=== PATIENT | female | born 1940 | race Two or more races ===

== ENCOUNTER 2023-10-31 15:18 | Emergency (ER) | payer OTHER ==
[~2023-10-31] VITALS: Ht 152.4 cm; Wt 51.3 kg
[2023-10-31] MEDS ORDERED: NORVASC5 MG PO (15:28)
[2023-10-31] MEDS ORDERED: SIMVASTATIN5 MG PO (15:28)
[2023-10-31] MEDS ORDERED: COZAAR100 MG PO (15:29)
[2023-10-31] MEDS ORDERED: METFORMIN HCL500 M3 PO (15:29)
[2023-10-31] MEDS ORDERED: SYNTHROID88 MCG PO (15:29)
[2023-10-31] MEDS ORDERED: MONTELUKAST SODI4 M1 PO (15:29)
[2023-10-31] MEDS ORDERED: 0.9 % SODIUM CHLORIDE 1,000 ML IV SCH (16:45)
[2023-10-31 17:35] LABS: ALBUMIN 3.9 gm/dL (3.4-5.0); BILIRUBIN TOTAL 0.21 mg/dL (0.3-1.2); CALCIUM 9.7 mg/dL (8.5-10.1); CREATININE SERUM 1.12 mg/dL (0.55-1.02); GFR 46.46; GLOBULINA 3.6 G/DL (2.4-3.5); POTASSIUM 4.88 mEq/L (3.5-5.1); TOTAL PROTEIN 7.5 gm/dL (6.4-8.2)
[2023-10-31 17:41] LABS: HEMATOCRIT 38.5 % (36.0-45.00); HEMOGLOBIN 13.1 g/dL (12.0-15.00); MEAN CELL VOLUME 88.5 fL (80.00-100.00); MEAN CORPUSCULAR HGB CONC 33.9 g/dl (32.0-36.0); PLATELET COUNT 279 K/uL (150-450); RED BLOOD COUNT 4.36 M/uL (4.00-6.00)
[2023-10-31] MEDS ORDERED: MOTION SICKNESS25 M1 PO (18:21)
== END 2023-10-31 18:24 | disposition home or self-care (01) ==
LOC: ER 15:19
PROVIDERS: General Practice
DX: R42 Dizziness and giddiness (principal); R51.9 Headache, unspecified; R53.1 Weakness; Z20.822 Contact with and (suspected) exposure to COVID-19; I10 Essential (primary) hypertension; E11.9 Type 2 diabetes mellitus without complications; Z79.84 Long term (current) use of oral hypoglycemic drugs; Z88.2 Allergy status to sulfonamides
CPT/HCPCS: 36415; 70460; 93005; 96365; 96366; 99284; J7030; Q9965